=== PATIENT | female | born 1975 | race Caucasian/White ===

== ENCOUNTER 2016-09-26 03:36 | Emergency (ER) | payer BC ==
[2016-09-26 03:46] VITALS: BP 139/88
[2016-09-26] MEDS ORDERED: Iopamidol 612 MG/ML 150 ML Bottle IV SCH (04:30)
[2016-09-26] MEDS ORDERED: Sodium Chloride 0.9% 80 ML IV SCH (04:30)
[2016-09-26] MEDS: Sodium Chloride 0.9% 10 ML Syringe FLUSH PRN ×2 (04:35→04:48)
--- NOTE | 2016-09-26 05:29 | EDM.PDOC ---
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 She was leaning forward and felt something tearing or pushing out in her left inguinal area. this was associated with sudden pain. Prior to this he had been feeling fine. No dysuria blood in her urine fevers chills nausea vomiting constipation diarrhea] Review of systems: As per history of present illness and below otherwise all systems reviewed and negative. Past medical history: As per history of present illness and as reviewed below otherwise noncontributory. Surgical history: As per history of present illness and as reviewed below otherwise noncontributory. Social history: No reported history of drug or alcohol abuse. Family history: As per history of present illness and as reviewed below otherwise noncontributory. Physical exam: HEENT: Atraumatic, normocephalic, pupils reactive, negative for conjunctival pallor or scleral icterus, mucous membranes moist, throat clear, neck supple, nontender, trachea midline. Lungs: Clear to auscultation, breath sounds equal bilaterally Heart: S1S2, regular Abdomen: She had tenderness to palpation her left lower quadrant and in palpating here she had referred pain to the right lower quadrant Pelvis: Stable nontender. Genitourinary: Deferred. Rectal: Deferred. Extremities: Atraumatic, negative for cords or calf pain. Neurovascular unremarkable. Neuro: Awake, alert, oriented. Cranial nerves II through XII unremarkable. Cerebellum unremarkable. Motor and sensory unremarkable throughout. Exam nonfocal. Diagnostics: [CBC complete metabolic panel UA were done abdominal pelvic CT was done with IV contrast and nothing was found] Therapeutics: [] Impression: [Left lower quadrant abdominal pain uncertain etiology] Plan: [She's going to return to work in finish her shift and may talk to Dr. Felder in the morning but her pain] Definitive disposition and diagnosis as appropriate pending reevaluation and review of above. 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: - Infectious Disease History Infectious Disease History: Reports: Influenza - Past Surgical History Female Surgical History: Reports: Hysterectomy, Other (see below) Other Female Surgeries/Procedures: rectocele surgery Musculoskeletal Surgical History: Reports: Other (see below) Other Musculoskeletal Surgeries/Procedures:: knee surgery Social & Family History - Tobacco Use Smoking Status *Q: Never Smoker Years of Tobacco use: 2 Used Tobacco, but Quit: Yes Month Tobacco Last Used: September Second Hand Smoke Exposure: No - Caffeine Use Caffeine Use: Reports: Coffee - Alcohol Use Days Per Week of Alcohol Use: 0 - Recreational Drug Use Recreational Drug Use: No - Living Situation & Occupation Living situation: Reports: , with spouse Occupation: employed ED ROS GENERAL - Review of Systems Review Of Systems: ROS reveals no pertinent complaints other than HPI. ED EXAM, GI/ABD - Physical Exam Exam: See Below Course - Vital Signs Last Recorded V/S: Last Vital Signs Temp 35.9 C 09/26/16 03:45 Pulse 73 09/26/16 03:45 Resp 16 09/26/16 03:45 BP 139/88 09/26/16 03:45 Pulse Ox 100 09/26/16 03:45 - Orders/Labs/Meds Orders: Active Orders 24 hr Category Date Time Status Abdomen Pelvis w Cont [CT] Stat Exams 09/26/16 04:11 Taken Iopamidol [Isovue-300 (61%)] Med 09/26/16 04:30 Active 140 ml IV . DIRECTED Sodium Chloride 0.9% [Normal Saline] 80 ml Med 09/26/16 04:30 Active IV ASDIRECTED Sodium Chloride 0.9% [Saline Flush] Med 09/26/16 04:28 Active 10 ml FLUSH ASDIRECTED PRN Medication Orders Sodium Chloride (Normal Saline) 80 mls @ 3 mls/sec IV ASDIRECTED MERRILL Last Admin: 09/26/16 04:48 Dose: 3 mls/sec Iopamidol (Isovue-300 (61%)) 140 ml IV . DIRECTED MERRILL Last Admin: 09/26/16 04:48 Dose: 140 ml Sodium Chloride (Saline Flush) 10 ml FLUSH ASDIRECTED PRN PRN Reason: Keep Vein Open Last Admin: 09/26/16 04:48 Dose: 10 ml Admin: 09/26/16 04:35 Dose: 10 ml Labs: Laboratory Tests 09/26/16 09/26/16 09/26/16 Range/Units 04:26 04:31 04:31 WBC 7.0 (4.5-11.0) K/uL RBC 4.37 (3.30-5.50) M/uL Hgb 13.5 (12.0-15.0) g/dL Hct 38.5 (36.0-48.0) % MCV 88 (80-98) fL MCH 31 (27-31) pg MCHC 35 (32-36) % Plt Count 190 (150-400) K/uL Neut % (Auto) 55 (36-66) % Lymph % (Auto) 34 (24-44) % [place] % (Auto) 10 H (2-6) % Eos % (Auto) 0 L (2-4) % Baso % (Auto) 1 (0-1) % Sodium 139 L (140-148) mmol/L Potassium 4.1 (3.6-5.2) mmol/L Chloride 102 (100-108) mmol/L Carbon Dioxide 27 (21-32) mmol/L Anion Gap 14.1 H (5.0-14.0) mmol/L BUN 14 D (7-18) mg/dL Creatinine 0.9 (0.6-1.0) mg/dL Est Cr Clr Drug Dosing 88.95 mL/min Estimated GFR (MDRD) > 60 (>60) Glucose 92 (74-106) mg/dL Calcium 8.9 (8.5-10.1) mg/dL Total Bilirubin 0.8 (0.2-1.0) mg/dL AST 16 (15-37) U/L ALT 27 (12-78) U/L Alkaline Phosphatase 29 L D (46-116) U/L Total Protein 7.7 (6.4-8.2) g/dL Albumin 4.8 (3.4-5.0) g/dL Globulin 2.9 (2.3-3.5) g/dL Albumin/Globulin Ratio 1.7 (1.2-2.2) Urine Color Yellow Urine Appearance Clear Urine pH 6.0 (4.5-8.0) Ur Specific [place] 1.010 (1.008-1.030) Urine Protein Negative (NEGATIVE) mg/dL Urine Glucose (UA) Normal (NEGATIVE) mg/dL Urine Ketones Negative (NEGATIVE) mg/dL Urine Occult Blood Negative (NEGATIVE) Urine Nitrite Negative (NEGATIVE) Urine Bilirubin Negative (NEGATIVE) Urine Urobilinogen Normal (NORMAL) mg/dL Ur Leukocyte Esterase Negative (NEGATIVE) Urine RBC 0-5 (0-5) Urine WBC 0-5 (0-5) Ur Epithelial Cells Few Amorphous Sediment Not seen Urine Bacteria Few Urine Mucus Not seen Meds: Medications Generic Name Dose Route Start Last Admin Trade Name Freq PRN Reason Stop Dose Admin Sodium Chloride 80 mls @ 3 mls/sec 09/26/16 04:30 09/26/16 04:48 Normal Saline IV 3 mls/sec ASDIRECTED MERRILL Administration Iopamidol 140 ml 09/26/16 04:30 09/26/16 04:48 Isovue-300 (61%) IV 140 ml . DIRECTED MERRILL Administration Sodium Chloride 10 ml 09/26/16 04:28 09/26/16 04:48 Saline Flush FLUSH 10 ml ASDIRECTED PRN Administration Keep Vein Open Departure - Departure Time of Disposition: 05:29 Disposition: Home, Self-Care 01 Condition: good Clinical Impression: Abdominal pain Qualifiers: Abdominal location: left lower quadrant Qualified Code(s): R10.32 - Left lower quadrant pain Forms: ED Department Discharge - My Orders Last 24 Hours: My Active Orders 09/26/16 04:11 Abdomen Pelvis w Cont [CT] Stat 09/26/16 04:28 Sodium Chloride 0.9% [Saline Flush] 10 ml FLUSH ASDIRECTED PRN 09/26/16 04:30 Iopamidol [Isovue-300 (61%)] 140 ml IV . DIRECTED Sodium Chloride 0.9% [Normal Saline] 80 ml IV ASDIRECTED - Assessment/Plan Last 24 Hours: My Active Orders 09/26/16 04:11 Abdomen Pelvis w Cont [CT] Stat 09/26/16 04:28 Sodium Chloride 0.9% [Saline Flush] 10 ml FLUSH ASDIRECTED PRN 09/26/16 04:30 Iopamidol [Isovue-300 (61%)] 140 ml IV . DIRECTED Sodium Chloride 0.9% [Normal Saline] 80 ml IV ASDIRECTED
== END 2016-09-26 05:33 | disposition home or self-care (01) ==
LOC: JP.ED 03:36
DX: R10.32 Left lower quadrant pain (principal); Z79.899 Other long term (current) drug therapy; Z88.1 Allergy status to other antibiotic agents; Z91.040 Latex allergy status; Z91.018 Allergy to other foods; Z91.048 Other nonmedicinal substance allergy status; Z87.891 Personal history of nicotine dependence
CPT/HCPCS: 36415; 74177; 80053; 81001; 85025; J7030; J7050; 99284-25

== ENCOUNTER 2017-12-20 07:13 | Day surgery (SDC) | payer BC ==
[2017-12-20] MEDS ORDERED: Neostigmine Methylsulfate 1 MG/ML 5 ML Syringe ONE (07:27)
[2017-12-20] MEDS ORDERED: Ondansetron 4 MG/2 ML SDV ONE (07:27)
[2017-12-20] MEDS ORDERED: fentaNYL 250 MCG/5 ML SDV ONE (07:27)
[2017-12-20] MEDS ORDERED: Dexamethasone 4 MG/ML SDV ONE (07:27)
[2017-12-20] MEDS ORDERED: Succinylcholine 200 MG/10 ML MDV ONE (07:27)
[2017-12-20] MEDS ORDERED: Glycopyrrolate 0.2 MG/ML 5 ML MDV ONE (07:27)
[2017-12-20] MEDS ORDERED: Rocuronium 50 MG/5 ML Vial ONE (07:27)
[2017-12-20] MEDS ORDERED: Propofol 200 MG/20 ML SDV ONE (07:27)
[2017-12-20] MEDS ORDERED: Acetaminophen 500 MG Tab PO ONE (07:30)
[2017-12-20] MEDS ORDERED: Scopolamine 1.5 MG Transdermal Patch TOP SCH (07:30)
[2017-12-20] MEDS ORDERED: Dextrose 5%-Lactated Ringers 1,000 ML IV SCH ×2 (07:30→13:15)
[2017-12-20] MEDS ORDERED: HYDROmorphone/Normal Saline 15 MG/30 ML PCA IV PRN (07:49)
[2017-12-20] MEDS ORDERED: Naloxone 0.4 MG/ML SDV IV PRN (07:52)
[2017-12-20] MEDS ORDERED: Ketamine 500 MG/5 ML MDV IV SCH (08:00)
[2017-12-20] MEDS ORDERED: Bupivacaine 0.5%/EPINEPHrine 1:200,000 50 ML MDV ONE (08:20)
[2017-12-20] MEDS: Levofloxacin/Dextrose 5%-Water 500 MG in Premix Bag 1 BAG IV ONE ×2 (11:44→13:57)
[2017-12-20] MEDS ORDERED: Lactated Ringers 1,000 ML ONE (11:55)
[2017-12-20] MEDS ORDERED: hydrOXYzine HCl 100 MG/2 ML SDV IM ONE (12:21)
[2017-12-20] MEDS ORDERED: hydrOXYzine HCl 100 MG/2 ML SDV IM PRN (13:13)
[2017-12-20] MEDS ORDERED: Ondansetron 4 MG/2 ML SDV IVPUSH PRN (13:13)
[2017-12-20] MEDS: Lidocaine 5% 700 MG Patch TRDERM SCH (13:58)
[2017-12-20] MEDS: SCOPOLAMINE PATCH CHECK TOP SCH (13:58)
[2017-12-20] MEDS: Ibuprofen 600 MG Tab PO SCH ×2 (14:39→21:58)
[2017-12-20] MEDS ORDERED: Melatonin 3 MG Tab PO PRN (15:20)
[2017-12-20] MEDS ORDERED: MELATONIN 10 MG PO PRN (15:23)
[2017-12-20] MEDS: Lubiprostone 24 MCG Cap PO SCH (17:42)
[2017-12-20] MEDS: diphenhydrAMINE 25 MG Cap PO PRN ×2 (17:42→21:59)
[2017-12-20] MEDS: Acetaminophen/oxyCODONE 325-5 MG Tab PO PRN (21:59)
[2017-12-21] MEDS: diphenhydrAMINE 25 MG Cap PO PRN (01:54)
[2017-12-21] MEDS: Acetaminophen/oxyCODONE 325-5 MG Tab PO PRN ×2 (01:55→08:59)
[2017-12-21] MEDS ORDERED: Cyclobenzaprine 10 MG Tab PO PRN (04:06)
[2017-12-21] MEDS: Ibuprofen 600 MG Tab PO SCH (06:20)
[2017-12-21] MEDS: Lubiprostone 24 MCG Cap PO SCH (07:41)
[2017-12-21 07:46] VITALS: BP 104/59
[2017-12-21] MEDS: Lidocaine 5% 700 MG Patch TRDERM SCH (08:30)
[2017-12-21] MEDS: SCOPOLAMINE PATCH CHECK TOP SCH (08:31)
--- NOTE | 2017-12-22 01:53 | DISCH ---
ADMISSION DIAGNOSES: Left ovarian cyst, chondromalacia patella, neuropathy, perineal nerve injury, chronic bilateral low back pain, chronic tension headache. DISCHARGE DIAGNOSIS: Diagnostic laparoscopy with left salpingo-oophorectomy involving ovarian cyst and cauterization of focal pelvic endometriosis for painful left ovarian cyst and focal pelvic endometriosis. Date of surgery, 12/20/2017. HISTORY: Ketty Velez is a 42-year-old female with extreme left lower quadrant abdominal pain. After preoperative evaluation and discussion of possible risks and possible complications, she wished to proceed with surgical procedure. HOSPITAL COURSE: Ketty had her surgery on 12/20/2017. She had no operative complications. On postop day #1, vital signs were stable. She tolerated the diet. Pain controlled and activity was good. She was able to be discharged to home. DISCHARGE PHYSICAL EXAMINATION: GENERAL: Ketty Velez is a 42-year-old female. VITAL SIGNS: Height is 5 feet 10 inches. Weight is 228 pounds. TPR is 98.4, 57, 16, blood pressure 107/62. HEENT: Negative. NECK: Supple. HEART: Regular rate and rhythm. LUNGS: Clear. ABDOMEN: Incisions look good. Sutures intact. Abdominal binder is on. EXTREMITIES: Without peripheral edema. DISPOSITION: Discharged to home. CONDITION: Stable and improving. FOLLOWUP: Followup appointment with Mirna Alexis PA-C, on 01/01/2018 at 9:30 a.m. NEW PRESCRIPTIONS: Percocet 5/325 mg 1 to 2 tabs every 4 hours p.r.n. pain, #30; Flexeril 10 mg q.8 hours p.r.n. muscle spasms, #30; to resume home medications of vitamin D3 a 1000 international units daily; ibuprofen 600 mg every 8 hours p.r.n. pain; lidocaine 5% 1 patch topical, use as directed; Amitiza 24 mcg oral twice daily; multivitamin 1 tablet twice daily; MiraLAX 17 to 34 g oral daily p.r.n. constipation; vitamin B complex 1 tablet daily; and discontinue the tramadol. DIET AFTER DISCHARGE: Usual diet as tolerated, drink 8 to 10 glasses of water a day. ACTIVITY: As tolerated. No lifting greater than 10 pounds for 2 weeks[address]riving, do not drive on pain medication. May shower. Notify provider if any fever, increased pain, nausea, or vomiting. Keep site clean and dry. Wear abdominal binder for 2 weeks and then as tolerated. Use incentive spirometer 10 times every hour while awake for 1 week.
--- NOTE | 2017-12-23 10:52 | OR ---
DATE OF PROCEDURE: 12/20/2017 PREOPERATIVE DIAGNOSIS: Painful left ovarian cyst. POSTOPERATIVE DIAGNOSES: 1. Painful left ovarian cyst. 2. Focal pelvic endometriosis. OPERATIVE PROCEDURES: Diagnostic laparoscopy with; 1. Left salpingo-oophorectomy including removal of ovarian cyst (07877). 2. Cauterization of focal pelvic endometriosis (21375). ANESTHESIA: General. ASSISTANTS: 1. Mirna Alexis PA-C. 2. NAYAN Sutherland. INDICATION FOR PROCEDURE: This is a 42-year-old presenting with a chronically painful left ovarian cyst. She was seen by Gynecology and was recommended to have the cyst removed. She does not desire further chid-bearing, so we most likely would remove the entire ovary along with the cyst as I suspect the cyst more or less involves thinning of the ovary. The right ovary appears to be normal and we intend to leave that in place, so the patient would not be immediately menopausal. Potential risks of the procedure including bleeding, infection, injury to underlying viscera or urinary tract, possibility of the cyst being malignant which might require additional treatment were all gone over, and the patient wishes to proceed. DETAILS OF PROCEDURE: The patient was taken to the operating room and placed in a supine position. After general endotracheal anesthesia was induced, a Adair catheter was inserted, and the abdomen was prepped and draped. Three fingerbreadths superior into the left of the umbilicus, a transverse incision was made, and the peritoneal cavity entered under direct vision with an Optiview trocar and inflated to 15 mmHg pressure with CO2. Laparoscope was then reinserted. No underlying trocar insertion site injuries were seen. Following this, a 12-mm trocar was placed in the right mid-abdomen and a 5-mm trocar in the left lateral abdomen. The pelvis was then examined at this point. The right ovary and tube were noted to be entirely normal. The left ovary was involved with what appeared to be multifocal cysts and quite a bit in the way of chronic inflammation in the adjacent soft tissues. This was mobilized up and the infundibulopelvic ligament was then divided with the AINSLEY stapler. The remaining attachments of the tube and ovary were then also divided with the AINSLEY staplers. The left tube, ovary, and attached cyst were then placed in a specimen bag and retrieved through the left upper 12 mm trocar site. The area of pelvis was then inspected and the patient was noted to have some scattered pelvic endometriosis in the area, predominantly just anterior to the left ovarian location. This area was cauterized with electrocautery. At that point, no further problems were noted. Trocars were then sequentially removed. The fascia at the 12 mm sites was closed with 0 Vicryl stitch, and the skin with 4-0 Vicryl skin stitch. Dressing was applied. The patient was taken to the recovery room in a satisfactory condition. Physician senior underwriting assistant, Mirna Alexis, played an essential role in assisting in this case, helping to position the patient, retract structures as needed, as well as suturing and cutting sutures when indicated. Her presence improved patient safety and decreased the operative time. Brady Felder MD /[id number]
== END 2017-12-21 10:27 | disposition home or self-care (01) ==
LOC: JP.SDS 07:13 → JP.2SS 12:20 → JP.SDS 12-21 10:27
PROVIDERS: ATTEND Surgery
DX: N83.202 Unspecified ovarian cyst, left side (principal); N83.12 Corpus luteum cyst of left ovary; N83.292 Other ovarian cyst, left side; N83.8 Other noninflammatory disorders of ovary, fallopian tube and broad ligament; N80.3 Endometriosis of pelvic peritoneum; J45.909 Unspecified asthma, uncomplicated; E66.01 Morbid (severe) obesity due to excess calories; Z68.33 Body mass index [BMI] 33.0-33.9, adult; K21.9 Gastro-esophageal reflux disease without esophagitis; M22.40 Chondromalacia patellae, unspecified knee; G89.29 Other chronic pain; M54.5 Low back pain; G44.221 Chronic tension-type headache, intractable; Z87.891 Personal history of nicotine dependence; Z79.899 Other long term (current) drug therapy; Z91.040 Latex allergy status; Z88.1 Allergy status to other antibiotic agents; Z91.048 Other nonmedicinal substance allergy status
CPT/HCPCS: 58661; 58662; 86304; 88305; 94762; A9270; J1100; J1170; J1956; J2405; J2704; J2710; J3010; J3410; J7042; J7120; J0330

== ENCOUNTER 2018-08-20 19:26 | Emergency (ER) | payer BC ==
[2018-08-20 19:49] VITALS: BP 134/80
--- NOTE | 2018-08-20 20:03 | EDM.PDOC ---
ED HPI GENERAL MEDICAL PROBLEM - General Chief Complaint: Upper Extremity Injury/Pain Stated Complaint: HURT FINGERS Time Seen by Provider: 08/20/18 19:45 Source of Information: Reports: Patient, Family History Limitations: Reports: No Limitations - History of Present Illness INITIAL COMMENTS - FREE TEXT/NARRATIVE: 42-year-old female crushed her right hand between a log and the fireplace within the last hour. She has significant pain over the fourth metacarpal into the fourth finger. Pain with movement. Some bruising has started on the dorsal aspect. Onset: Sudden Duration: Hour(s): (Within the last hour) Location: Reports: Upper Extremity, Right Associated Symptoms: Reports: No Other Symptoms Right Head Pain Score (Numeric/FACES): 3 - Related Data Allergies Allergy/AdvReac Type Severity Reaction Status Date / Time cephalexin monohydrate Allergy Unknown Rash Verified 08/20/18 19:53 [From Keflex] latex Allergy Unknown Rash Verified 08/20/18 19:53 Dairy Products Allergy Abdominal Verified 08/20/18 19:53 Cramps wheat Allergy Abdominal Verified 08/20/18 19:53 Cramps cantalope Allergy Unknown Blisters Uncoded 08/20/18 19:53 dissolvable sutures Allergy Unknown Cannot Uncoded 08/20/18 19:53 Remember OATS Allergy Abdominal Uncoded 08/20/18 19:53 Cramps PARSLEY Allergy Abdominal Uncoded 08/20/18 19:53 Cramps Home Meds: Home Meds Cholecalciferol (Vitamin D3) [Vitamin D3] 1,000 units PO DAILY 12/19/17 [History ] Ibuprofen 600 mg PO Q8H PRN 12/19/17 [History] Lidocaine 5% [Lidoderm 5%] 1 patch TOP DAILY 12/19/17 [History] Multivitamin with Minerals [Multiple Vitamin] 1 tab PO BID 12/19/17 [History] Vitamin B Complex [B Complex] 1 tab PO DAILY 12/19/17 [History] Cyclobenzaprine [Flexeril] 10 mg PO Q8H PRN #30 tablet 12/21/17 [Rx] Past Medical History HEENT History: Reports: Impaired Vision Gastrointestinal History: Reports: Chronic Constipation, Irritable Bowel Syndrome 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: - Infectious Disease History Infectious Disease History: Reports: Chicken Pox - Past Surgical History GI Surgical History: Reports: Colonoscopy, Other (See Below) Other GI Surgeries/Procedures: ADHESIONS REPAIR December 2017 Female Surgical History: Reports: Hysterectomy, Salpingo-Oophorectomy, Other (See Below) Other Female Surgeries/Procedures: rectocele surgery endometiosis Musculoskeletal Surgical History: Reports: Arthroscopic Knee, Other (See Below) Other Musculoskeletal Surgeries/Procedures:: knee surgery - tibial tubercle transfer Social & Family History - Tobacco Use Smoking Status *Q: Never Smoker - Caffeine Use Caffeine Use: Reports: Coffee, Soda - Recreational Drug Use Recreational Drug Use: No - Living Situation & Occupation Living situation: Reports: , with Spouse Occupation: Employed Review of Systems - Review of Systems Review Of Systems: See Below Constitutional: Denies: Fever Respiratory: Denies: Shortness of Breath GI/Abdominal: Denies: Nausea, Vomiting Skin: Reports: Bruising Neurological: Denies: Paresthesia ED EXAM, GENERAL - Physical Exam Exam: See Below Exam Limited By: No Limitations General Appearance: Alert, No Apparent Distress Respiratory/Chest: No Respiratory Distress Extremities: Other (Exam is otherwise limited to the right hand. There is tenderness and bruising over the fourth metacarpal distally into the MP joint. No crepitus is felt.) Course - Vital Signs Last Recorded V/S: Last Vital Signs Temp 97.4 F 08/20/18 19:47 Pulse 76 08/20/18 19:47 Resp 16 08/20/18 19:47 BP 134/80 08/20/18 19:47 Pulse Ox 99 08/20/18 19:47 - Re-Assessments/Exams Free Text/Narrative Re-Assessment/Exam: 08/20/18 20:03 A right hand x-ray was obtained. 08/20/18 20:55 X-ray confirms a comminuted fracture of the proximal aspect of the proximal phalanx of the ring finger. There is extension into the joint space. An ulnar gutter splint was applied to the hand, and she should recheck with orthopedics tomorrow. She was given 10 hydrocodone for extra pain control. Departure - Departure Time of Disposition: 21:05 Disposition: Home, Self-Care 01 Condition: Good Clinical Impression: Phalanx, proximal fracture of finger Qualifiers: Encounter type: initial encounter Finger: ring finger Fracture type: closed Fracture alignment: displaced Laterality: right Qualified Code(s): S62.614A - Displaced fracture of proximal phalanx of right ring finger, initial encounter for closed fracture - Discharge Information Instructions: Finger Fracture, [id number] Referrals: Mitchell Montes De Oca MD [Primary Care Provider] - Forms: ED Department Discharge Care Plan Goals: Leave splint on until rechecked by Dr. Mancini, hopefully he can work you in tomorrow. Elevating the hand, ibuprofen or naproxen should help, and add stronger pain medications if needed.
--- NOTE | 2018-08-20 20:32 | CRLCR ---
HISTORY: Crush injury of the 4th digit of the right hand. TECHNIQUE: Three views of the right hand. COMPARISON: No prior. FINDINGS: There is an acute multi-directional mildly comminuted fracture of the proximal phalanx of the 4th digit of the right hand. Fracture extends to the proximal articular surface where there is minimal displacement. No other fracture. Ulnar minus variance. No joint space narrowing. IMPRESSION: Acute comminuted multi-directional minimally displaced fracture of the proximal phalanx of the 4th digit of the right hand. Dictated by Brody Le MD @ 08/20/2018 8:31:10 PM Dictated by: Brody Le MD @ 08/20/2018 20:31:15 (Electronically Signed)
== END 2018-08-20 21:06 | disposition home or self-care (01) ==
LOC: JP.ED 19:26
DX: S62.614A Displaced fracture of proximal phalanx of right ring finger, initial encounter for closed fracture (principal); Z88.8 Allergy status to other drugs, medicaments and biological substances; Z91.011 Allergy to milk products; Z79.899 Other long term (current) drug therapy; W23.1XXA Caught, crushed, jammed, or pinched between stationary objects, initial encounter
CPT/HCPCS: 29125; 73130-RT; 99284-25

== ENCOUNTER 2018-08-26 06:39 | Day surgery (SDC) | payer BC ==
[2018-08-26] MEDS ORDERED: Bupivacaine 0.5%/EPINEPHrine 1:200,000 50 ML MDV ONE ×2 (06:41→07:26)
[2018-08-26] MEDS ORDERED: Bupivacaine 0.5% 50 ML MDV ONE (06:41)
[2018-08-26] MEDS ORDERED: Sodium Chloride 0.9% 1,000 ML IV SCH (07:15)
[2018-08-26] MEDS ORDERED: Bupivacaine 0.5% 30 ML SDV ONE ×2 (07:25→07:48)
[2018-08-26] MEDS ORDERED: Bupivacaine 0.5%/EPINEPHrine 1:200,000 30 ML SDV ONE (07:29)
[2018-08-26] MEDS ORDERED: Midazolam 1 MG/ML 2 ML SDV ONE (07:46)
[2018-08-26] MEDS ORDERED: fentaNYL 100 MCG/2 ML SDV ONE ×2 (07:46→09:05)
[2018-08-26] MEDS ORDERED: Propofol 200 MG/20 ML SDV ONE ×3 (07:46→09:00)
[2018-08-26] MEDS ORDERED: Clindamycin Phosphate 900 MG in Sodium Chloride 0.9% 100 ML IV ONE (08:00)
[2018-08-26 10:29] VITALS: BP 115/70
--- NOTE | 2018-08-26 16:34 | PCM.OPNOTE ---
- General Post-Op/Procedure Note Date of Surgery/Procedure: 08/26/18 Operative Procedure(s): Closed Reduction and percutaneous pinning right fourth finger proximal phalanx Findings: Moderately displaced fracture of the base of the proximal phalanx, 4th finger, right hand. Pre Op Diagnosis: closed fracture prox. phalanx, 4th finger, right hand Post-Op Diagnosis: Same Anesthesia Technique: Local Secondary Surgeon: Patrick Mancini Condition: Good Free Text/Narrative:: Intake & Output 08/26/18 08/26/18 08/26/18 06:59 14:59 22:59 Intake Total 1140 Balance 1140 Indications: Ketty is a 42-year-old [id number] female who sustained an injury to her right fourth anger last week. She got it smashed between a log in her fireplace. X-rays show a mildly comminuted fracture at the base of the proximal phalanx of the fourth finger. Initial alignment was slight ulnar deviation. Attempts at correcting this in the clinic resulted in displacement of the fracture. She now presents for attempted closed reduction and pinning, possible open reduction and pinning versus internal fixation. Risks and benefits , potential complications of the procedure were discussed. She agrees to proceed. Procedure: Attempt was initially made at her block anesthesia, however due to the swelling of the hand and inability to find an adequate vein and this had to be abandoned. The in around the MCP joint of the fourth finger was then prepped with alcohol. 0.5% Marcaine was then infiltrated on either side of the metacarpal head for a digital block as well as distally along the course of the digital nerve on each side of the proximal phalanx. A tourniquet was placed about the upper arm in the event that open reduction would be necessary. The arm was not exsanguinated and the tourniquet was not inflated. She was then visualized using the small C-arm. Fracture fragments were manipulated into place. A 0.045 K wire was then used to further manipulate the fracture fragments and wire was then placed from the shaft of the phalanx down into the base across the fracture. Fracture reduction was evaluated using fluoroscopy. Alignment and rotation of the fourth finger was then evaluated. A second 0.045 K wire was then used for additional fixation. Final position of the wires and reduction was evaluated using fluoroscopy in AP and lateral images. The wires were then bent outside the skin and cut. Xeroform dressing was placed around the K wires and sterile guaze was placed between the fingers and around the pins. A well padded ulnar gutter plaster splint was placed and molded in an intrinsic plus position. This was wrapped with an Patricio bandage leaving her thumb, index and middle fingers free. She tolerated the procedure well and was taken from the operating room in stable condition.
== END 2018-08-26 10:50 | disposition home or self-care (01) ==
LOC: JP.SDS 06:39
PROVIDERS: ATTEND Specialist
DX: S62.614A Displaced fracture of proximal phalanx of right ring finger, initial encounter for closed fracture (principal); X58.XXXA Exposure to other specified factors, initial encounter; K21.9 Gastro-esophageal reflux disease without esophagitis; Z88.1 Allergy status to other antibiotic agents; Z91.011 Allergy to milk products; Z91.018 Allergy to other foods; Z91.040 Latex allergy status
CPT/HCPCS: 76000; J2250; J2704; J3010; J3490; J7030

== ENCOUNTER 2020-03-02 06:04 | Day surgery (SDC) | payer BC ==
[2020-03-02] MEDS ORDERED: Dextrose 5%-Lactated Ringers 1,000 ML IV SCH (06:30)
[2020-03-02] MEDS ORDERED: Midazolam 1 MG/ML 2 ML SDV ONE (06:53)
[2020-03-02] MEDS ORDERED: Propofol 200 MG/20 ML SDV ONE ×2 (06:53→08:15)
[2020-03-02] MEDS ORDERED: fentaNYL 100 MCG/2 ML SDV ONE (06:53)
[2020-03-02] MEDS ORDERED: Glycopyrrolate 0.2 MG/ML 2 ML SDV IVPUSH ONE (07:30)
[2020-03-02 09:03] VITALS: BP 126/83; PULSE 87
--- NOTE | 2020-03-24 16:51 | OR ---
DATE OF PROCEDURE: 03/02/2020 SURGEON: Brady Felder MD PREOPERATIVE DIAGNOSIS: Dysphagia referable to distal esophagus with history of a previous gastroesophageal reflux disease and peptic ulcer disease. POSTOPERATIVE DIAGNOSES: 1. Small hiatal hernia with active gastroesophageal reflux disease with significant edema at esophagogastric junction. 2. Diffuse mild to moderate gastritis with reddened streaks in the gastric body. 3. Multiple fundic gland polyps. OPERATIVE PROCEDURE: Esophagogastroduodenoscopy with: 1. Biopsies of esophagogastric junction for histologic evaluation. 2. Biopsies of antrum for CLOtest. 3. Gastric polypectomy. ANESTHESIA: IV sedation. INDICATION FOR PROCEDURE: This is a 44-year-old presenting with an upper GI endoscopy planned for evaluation of dysphagia. She does have history of gastroesophageal reflux disease and presently is only on sporadic medical treatment. She also has history of peptic ulcer disease apparently in the past as well. Plan is to proceed with an upper GI endoscopy with biopsies and/or dilation as indicated. Potential risks including bleeding and perforation were discussed, and the patient wishes to proceed. DETAILS OF PROCEDURE: The patient was taken to the operating room and placed in a left lateral decubitus position. IV sedation was administered, after which the upper GI endoscope was passed orally through the length of the esophagus and into the stomach with retroflexion view of the fundus and thereafter through the pyloric channel and into the proximal duodenum. Findings included normal hypopharynx, larynx, upper esophageal sphincter, and esophageal body. At the EG junction, the patient was noted to have a small hiatal hernia with quite active gastroesophageal reflux disease with the distal esophageal mucosa and mucosa at the EG junction being edematous and somewhat friable. There was no stricturing or plaquing per se. Within the stomach, there was some mild to moderate gastritis through much of the stomach with some reddened streaks in the gastric body and there were multiple fundic gland polyps present. The pyloric channel and proximal duodenum were unremarkable. At this point, biopsies were obtained from the antrum and sent for CLOtest for H. pylori. Multiple biopsies were then obtained from esophagogastric junction and sent for histologic evaluation. Finally, one of the larger of the fundic gland polyps was encircled with snare and removed by means of cautery device and retrieved through an endoscopic basket. Minimal bleeding from the biopsies and polypectomy site was noted and the procedure concluded. The patient was taken to the recovery room in satisfactory condition. At this point, the patient will be given Protonix IV in the recovery room and will be started on Protonix 40 mg a day. I will see the patient in 7 to 10 days for followup. Brady Felder MD /[id number]
== END 2020-03-02 09:03 | disposition home or self-care (01) ==
LOC: JP.SDS 06:04
PROVIDERS: ATTEND Surgery
DX: K29.50 Unspecified chronic gastritis without bleeding (principal); K21.0 Gastro-esophageal reflux disease with esophagitis; K44.9 Diaphragmatic hernia without obstruction or gangrene; K31.7 Polyp of stomach and duodenum; K31.89 Other diseases of stomach and duodenum; Z87.11 Personal history of peptic ulcer disease
CPT/HCPCS: 43239; 43251; 87081; 88305; J2250; J2704; J3010; J3490; J7121

== ENCOUNTER 2022-09-18 08:22 | Day surgery (SDC) | payer BC ==
[2022-09-18] MEDS ORDERED: Dextrose 5%-Lactated Ringers 1,000 ML IV SCH (08:54)
[2022-09-18] MEDS ORDERED: Propofol 200 MG/20 ML SDV ONE ×2 (09:11→12:05)
[2022-09-18] MEDS ORDERED: Midazolam 1 MG/ML 2 ML SDV ONE (09:11)
[2022-09-18] MEDS ORDERED: fentaNYL 100 MCG/2 ML SDV ONE (09:11)
[2022-09-18 13:20] VITALS: BP 110/70; PULSE 60
== END 2022-09-18 13:20 | disposition home or self-care (01) ==
LOC: JP.SDS 08:22
PROVIDERS: ATTEND Surgery
DX: K57.30 Diverticulosis of large intestine without perforation or abscess without bleeding (principal); K64.4 Residual hemorrhoidal skin tags; K21.9 Gastro-esophageal reflux disease without esophagitis; E66.9 Obesity, unspecified; I25.2 Old myocardial infarction; Z91.040 Latex allergy status; Z88.1 Allergy status to other antibiotic agents
CPT/HCPCS: 45378; J2250; J2704; J3010; J7121

== ENCOUNTER 2022-10-30 05:50 | Day surgery (SDC) | payer BC ==
[2022-10-30 06:56] LABS: ESTIMATED GFR 91 mL/min (>60)
[2022-10-30] MEDS ORDERED: Bupivacaine 0.5% 30 ML SDV ONE ×2 (06:59→07:20)
[2022-10-30] MEDS ORDERED: Lactated Ringers 1,000 ML IV SCH (07:00)
[2022-10-30] MEDS ORDERED: Bupivacaine 0.5% 50 ML MDV ONE (07:00)
[2022-10-30] MEDS ORDERED: Nozin Nasal Sanitizer NASBOTH ONE (07:00)
[2022-10-30] MEDS ORDERED: Propofol 200 MG/20 ML SDV ONE ×4 (07:19→08:48)
[2022-10-30] MEDS ORDERED: Midazolam 1 MG/ML 2 ML SDV ONE (07:19)
[2022-10-30] MEDS ORDERED: fentaNYL 100 MCG/2 ML SDV ONE ×5 (07:19→09:10)
[2022-10-30] MEDS ORDERED: ceFAZolin 1 GM in Premix Bag 1 BAG IV ONE (07:30)
[2022-10-30] MEDS ORDERED: Labetalol 20 MG/4 ML Syringe ONE (08:52)
[2022-10-30] MEDS ORDERED: Acetaminophen/HYDROcodone 325-5 MG Tab PO PRN (10:33)
[2022-10-30 10:47] VITALS: BP 127/74; PULSE 74
== END 2022-10-30 11:00 | disposition home or self-care (01) ==
LOC: JP.SDS 05:50
PROVIDERS: ATTEND Specialist
DX: M75.41 Impingement syndrome of right shoulder (principal); M77.8 Other enthesopathies, not elsewhere classified; M75.21 Bicipital tendinitis, right shoulder; M65.811 Other synovitis and tenosynovitis, right shoulder; K21.9 Gastro-esophageal reflux disease without esophagitis; E66.9 Obesity, unspecified; Z91.040 Latex allergy status; Z88.8 Allergy status to other drugs, medicaments and biological substances
CPT/HCPCS: 29823; 36415; 64415; 80053; 85027; 85610; 85730; 93005; A9270; C1713; J0690; J2250; J2704; J3010; J3490; J7120